=== PATIENT | female | born 2000 | race African-American/Black ===

== ENCOUNTER 2019-06-29 22:54 | Emergency (ER) | payer OTHER ==
[~2019-06-29] VITALS: Ht 165.1 cm; Wt 55.3 kg
[2019-06-29] MEDS ORDERED: PROZAC10 M1 PO (23:00)
[2019-06-29 23:50] LABS: HEMATOCRIT 35.3 % (37.0-47.0); HEMOGLOBIN 11.3 gm/dL (12.0-15.0); MCH 27.6 pg (26.0-34.0); MCHC 31.9 g/dL (28.0-37.0); MCV 86.3 fL (80.0-100.0); PLATELET COUNT 170 thou/uL (150-400); RBC 4.09 mil/uL (4.20-5.00); RDW 15.3 % (10.5-14.5); WBC 4.5 thou/uL (4.0-11.0)
[2019-06-29 23:54] LABS: ANION GAP 11 mmol/L (7-16); BUN 6 mg/dL (7-18); CHLORIDE 104 mmol/L (98-107); CO2 23 mmol/L (21-32); CREATININE 0.7 mg/dL (0.6-1.0); GLUCOSE 97 mg/dL (74-106); POTASSIUM 3.1 mmol/L (3.5-5.1); SALICYLATE < 2.8 mg/dL (2.8-20.0); SODIUM 138 mmol/L (136-145)
[2019-06-30 00:52] LABS: ATYPICAL LYMPHS 1 %; NUCLEATED RBCS 1 /100WBC
[2019-06-30 00:53] LABS: LARGE PLATELETS FEW
[2019-06-30 01:31] LABS: AMP/METHAMP Negative (Negative); BARBITURATES Negative (Negative); BENZODIAZEPINES Negative (Negative); COCAINE Negative (Negative); METHADONE Negative (Negative); OPIATES Negative (Negative); PCP Negative (Negative)
[2019-06-30 14:15] VITALS: BP 115/65
--- NOTE | 2019-07-01 11:22 | EKG ---
[address] [address] ELECTROCARDIOGRAM REPORT Name: AKILMARILYN Room #: [place] Charles#: [id number] Admission: 06/29/19 Attend Phys: Discharge: 06/30/19 Date of : [birth year] Report #: [id number] THIS REPORT FOR: //name// [facility] ED Test Date: 2019-06-29 Test Time: 23:31:13 Pat Name: MARILYN BARNARD Department: Room: Gender: F Recreational Specialist: TESFAYE : 2000 Requested By: Lu Tobin Order Number: [id number] MD: Alvin Robertson Measurements Intervals [place] Rate: 70 P: 43 [place]: 156 QRS: 44 QRSD: 76 T: 18 QT: 408 QTc: 441 Interpretive Statements Sinus rhythm Probable left atrial enlargement No previous ECG available for comparison Electronically Signed On 07-01-2019 11:22:02 [employer] by Alvin Robertson [email or web address] <ELECTRONICALLY SIGNED> By: Alvin Robertson MD 07/01/19 [id number] Alvin Robertson MD /ALMAS
== END 2019-06-30 14:15 | disposition short-term general hospital (02) ==
LOC: ER 22:54
PROVIDERS: Student in an Organized Health Care Education/Training Program
DX: T43.222A Poisoning by selective serotonin reuptake inhibitors, intentional self-harm, initial encounter (principal); F32.9 Major depressive disorder, single episode, unspecified; R45.851 Suicidal ideations; J45.909 Unspecified asthma, uncomplicated; Y92.89 Other specified places as the place of occurrence of the external cause